=== PATIENT | female | born 1980 | race Caucasian/White ===

== ENCOUNTER 2016-03-14 11:10 | Inpatient (IN) | payer BC ==
[2016-03-10 12:25] VITALS: BMI 40.7
[~2016-03-14 11:10] MED LIST: DEXAMETHASONE SOD PHOSPHATE 10 MG/ML 1 ML VIAL IV ONE; HYDROmorphone 1 MG/ML 1 ML SYRINGE IVP PRN; LIDOCAINE 1% 20 ML VIAL (10MG/ML) FOR IV START INTRADERMA PRN; MIDAZOLAM 2 MG/2 ML VIAL IV PRN; ONDANSETRON 4 MG/2 ML VIAL IVP ONE; SCOPOLAMINE 1.5MG/72HR PATCH TRANSDERM ONE; ceFAZolin 2 GM in SODIUM CHLORIDE 0.9% 100 ML IVPB ONE
[2016-03-14 11:50] LABS: Appearance,Urine Cloudy (Clear); Bilirubin,Urine Negative (Negative); Glucose,Urine (UA) Negative (Negative); Ketones,Urine Trace (Negative); Leukocyte Esterase,Urine Trace (Negative); Mucus,Urine Few /hpf; Nitrite,Urine Negative (Negative); PH, Urine 5.5 (5.0-8.0); Particle Count 12991; Protein,Urine Trace (Negative); RBC,Urine 1 /hpf (0-5); Specific Gravity,Urine 1.019 (1.001-1.035); Squamous Epithelial Cell,Urine 9 /hpf (0-4); UA Billing (MACRO vs. MICRO) MICRO; WBC,Urine 2 /hpf (0-5)
[2016-03-14] MEDS: LACTATED RINGERS 1,000 ML IV SCH (11:50)
[2016-03-14] MEDS ORDERED: HYDROmorphone (PF) 1 MG/ML ONE (13:24)
[2016-03-14] MEDS ORDERED: PROPOFOL 10 MG/ML 20 ML VIAL IV ONE (13:24)
[2016-03-14] MEDS ORDERED: LIDOCAINE 2%-EPI 1:100,000 20 ML VIAL ONE (13:24)
[2016-03-14] MEDS ORDERED: ROPIVACAINE 5 MG/ML 30 ML VIAL ONE (13:24)
[2016-03-14] MEDS ORDERED: MIDAZOLAM 2 MG/2 ML VIAL ONE (13:24)
[2016-03-14] MEDS ORDERED: NEOSTIGMINE 1 MG/ML 10 ML VIAL ONE (13:24)
[2016-03-14] MEDS ORDERED: ROCURONIUM BROMIDE 10 MG/ML 10 ML VIAL IV ONE (13:24)
[2016-03-14] MEDS ORDERED: SUCCINYLCHOLINE CHLORIDE 100 MG/5 ML SYR IV ONE (13:24)
[2016-03-14] MEDS ORDERED: fentaNYL (PF) 50 MCG/ML 2 ML AMP ONE (13:24)
[2016-03-14] MEDS ORDERED: GLYCOPYRROLATE 0.2 MG/ML 2 ML VIAL ONE (13:24)
[2016-03-14] MEDS ORDERED: ceFAZolin 2,000 MG in SODIUM CHLORIDE 0.9% 2,000 ML IRRIGATION ONE (15:07)
[2016-03-14] MEDS: LACTATED RINGERS 1,000 ML IV ONE ×2 (15:08→15:34)
[2016-03-14] MEDS ORDERED: LACTATED RINGERS 1,000 ML IV ONE (15:08)
--- NOTE | 2016-03-14 15:18 | FL ---
Fluoroscopy INDICATION: Pain FINDINGS: Fluoroscopy time: 1 minute 13 seconds. Images obtained: 2. IMPRESSIONS: 1. Documentation of fluoroscopy.
--- NOTE | 2016-03-14 15:23 | XR ---
EXAMINATION TYPE: XR shoulder complete RT DATE OF EXAM: 03/14/2016 3:13 PM COMPARISON: NONE HISTORY: Open reduction internal fixation TECHNIQUE: Fluoroscopy is provided for procedure documentation FINDINGS: 1 minute 13 seconds fluoroscopy time was provided. 2 images were obtained IMPRESSION: Fluoroscopy for procedure documentation
[2016-03-14] MEDS ORDERED: HYDROmorphone 1 MG/ML 1 ML SYRINGE IVP PRN ×2 (15:34)
[2016-03-14] MEDS ORDERED: ONDANSETRON 4 MG/2 ML VIAL IVP PRN (15:34)
[2016-03-14] MEDS ORDERED: METOCLOPRAMIDE 5 MG/ML 2 ML VIAL IVP PRN (15:34)
[2016-03-14] MEDS ORDERED: TEMAZEPAM 15 MG CAP PO PRN (15:34)
[2016-03-14] MEDS ORDERED: SENNOSIDES-DOCUSATE SODIUM 1 EACH TAB PO PRN (15:34)
[2016-03-14] MEDS ORDERED: diphenhydrAMINE 25 MG CAP PO PRN (15:34)
[2016-03-14] MEDS ORDERED: hydrOXYzine PAMOATE 25 MG CAP PO PRN (15:34)
[2016-03-14] MEDS ORDERED: HYDROcodone/APAP 7.5-325MG 1 EACH TAB PO PRN (15:37)
[2016-03-14] MEDS ORDERED: LIDOCAINE 2% INJ 20 MG/ML SQ ONE (16:20)
[2016-03-14] MEDS ORDERED: BUPIVACAIN-EPI 0.25%-1:200,000 30 ML VIAL INTRAARTIC ONE (16:22)
--- NOTE | 2016-03-14 16:31 | P.ONQ ---
Anesthesiology Proc Note - PNB - Peripheral Nerve Block Performed Right Interscalene Single Procedure Start Time: 04:05 Procedure Stop Time: 04:20 Indication: Acute Post-Operative Pain Sedation Type: Sedate with meaningful contact maintained Preparation: Sterile Prep Position: Supine Catheter: None Needle Size: 50mm (2") Needle Gauge: 20 Technique: Ultrasound Injectate: Other (see comment) (lidocaine 1% 10 ml+ Bupivacaine 0,25% with epi 1 /200 k 10 ml) Blood Aspirated: No Pain Paresthesia on Injection Noted: No Resistance on Injection: Normal Events: Uneventful and Well Tolerated
[2016-03-14 18:12] LABS: Basophils % (A) 0 %; CHCM 32.2; Eosinophils # (A) 0.2 k/uL (0-0.7); Eosinophils % (A) 1 %; HCT 39.8 % (34.0-46.0); HDW 2.87; HGB 12.9 gm/dL (11.4-16.0); Hypochromasia Slight; Luc # (Auto) 0.04; Luc % (Auto) 0; Lymphocytes # (A) 0.7 k/uL (1.0-4.8); Lymphocytes % (A) 4 %; MCH 27.3 pg (25.0-35.0); MCHC 32.3 g/dL (31.0-37.0); MCV 84.3 fL (80.0-100.0); Mean Platelet Volume 8.2; Monocytes # (A) 0.2 k/uL (0-1.0); Monocytes % (A) 1 %; Neutrophils # (A) 16.9 k/uL (1.3-7.7); Neutrophils % (A) 94 %; RBC 4.72 m/uL (3.80-5.40); RDW 14.5 % (11.5-15.5); WBC (Perox) 20.15
[2016-03-14] MEDS ORDERED: ALBUTEROL INHALER 60 PUFF/8 GM INHALER INHALATION PRN (19:05)
[2016-03-14] MEDS: ALBUTEROL NEBULIZED 2.5 MG/3 ML INHALATION PRN (20:44)
[2016-03-14] MEDS: ALPRAZolam 0.5 MG TAB PO SCH (21:05)
[2016-03-14] MEDS: DOXYCYCLINE 50 MG CAP PO SCH (21:05)
[2016-03-14] MEDS: levETIRAcetam 500 MG TAB PO SCH (21:06)
[2016-03-14] MEDS: ceFAZolin 2 GM in SODIUM CHLORIDE 0.9% 100 ML IVPB SCH (21:14)
[2016-03-15] MEDS: ceFAZolin 2 GM in SODIUM CHLORIDE 0.9% 100 ML IVPB SCH (04:05)
[2016-03-15] MEDS: HYDROmorphone 1 MG/ML 1 ML SYRINGE IVP PRN ×4 (04:15→20:17)
[2016-03-15] MEDS: HYDROcodone/APAP 7.5-325MG 1 EACH TAB PO PRN ×4 (04:55→21:11)
[2016-03-15] MEDS: ALPRAZolam 0.5 MG TAB PO SCH ×3 (04:56→22:12)
[2016-03-15] MEDS: ALBUTEROL NEBULIZED 2.5 MG/3 ML INHALATION PRN ×2 (05:12→09:18)
--- NOTE | 2016-03-15 09:08 | P.PN ---
Subjective Principal diagnosis: Right proximal humerus fracture Patient is postop day #1 from ORIF of right proximal humerus fracture performed by Dr. Hansen. She has postoperative pain at the surgical site as expected. She has no new right upper extremity complaints. She denies numbness or tingling. She has some chest congestion which she has chronic asthma and utilizes an albuterol inhaler and nebulizer at home. She's had to breathing treatments postoperatively. She denies chest pain or shortness of breath currently. She also denies fever or chills. She has no other complaints or constitutional symptoms. Objective - Vital Signs Vital signs: Vital Signs Temp 98.8 F 03/15/16 07:46 Pulse 66 03/15/16 07:46 Resp 14 03/15/16 07:46 BP 140/90 03/15/16 07:46 Pulse Ox 98 03/15/16 07:46 Intake & Output 03/14/16 03/15/16 03/15/16 18:59 06:59 18:59 Intake Total 3300 300 Output Total 100 Balance 3200 300 Weight 117.934 kg Intake: IV 3300 Oral 300 Output: Estimated Blood Loss 100 Other: Voiding Method Bedpan Bedpan Toilet # Voids 3 - Exam Inspection of the right upper extremity reveals wound intact. There is no active bleeding, dehiscence or drainage. Range of motion of the shoulders not tested. Neurovascular status is intact. She has splint in place for her right scaphoid fracture. She is able to flex and extend all digits. Sensation to light touch is intact throughout the right upper extremity. There is less than 2 second cap refill present. - Constitutional General appearance: Present: no acute distress - Psychiatric Psychiatric: Present: A&O x's 3, appropriate affect, intact judgment & insight - Labs CBC & Chem 7: 03/14/16 17:31 Labs: Abnormal Lab Results - Last 24 Hours (Table) 03/14/16 03/14/16 Range/Units 11:40 17:31 WBC 18.0 H (3.8-10.6) k/uL Neutrophils # 16.9 H (1.3-7.7) k/uL Lymphocytes # 0.7 L (1.0-4.8) k/uL Urine Appearance Cloudy H (Clear) Urine Protein Trace H (Negative) Urine Ketones Trace H (Negative) Ur Leukocyte Esterase Trace H (Negative) Ur Squamous Epith Cells 9 H (0-4) /hpf Urine Mucus Few H (None) /hpf Assessment and Plan (1) Fx humeral neck Narrative/Plan: She'll continue with routine postop orthopedic protocol including pain management, wound care and DVT prophylaxis. She is to remain in sling and nonweightbearing with the right upper extremity. Splint to the right forearm and wrist is to be remain intact. We'll consult her primary care physician for postoperative medical management including or asthma. Expect that she'll be allowed to discharge to home today or tomorrow pending her primary care physician's recommendations. Status: Acute Time with Patient: Less than 30
[2016-03-15] MEDS: DULoxetine HCL 30 MG CAPSULE.DR PO SCH (09:42)
[2016-03-15] MEDS: levETIRAcetam 500 MG TAB PO SCH ×2 (09:42→22:10)
[2016-03-15] MEDS: LACTATED RINGERS 1,000 ML IV SCH ×5 (09:43→21:03)
[2016-03-15] MEDS ORDERED: guaiFENesin-DM 100-10MG/5ML 10 ML CUP PO PRN (10:21)
[2016-03-15] MEDS: DOXYCYCLINE 50 MG CAP PO SCH (10:32)
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
--- NOTE | 2016-03-15 13:11 | XR ---
EXAMINATION TYPE: XR chest 2V DATE OF EXAM: 03/15/2016 1:05 PM COMPARISON: Prior chest x-ray 04 Jul 2011 HISTORY: Cough TECHNIQUE: Frontal and lateral views of the chest are obtained. FINDINGS: Airspace disease suspected in the right upper lobe. Patchy basilar density also noted. No evident pneumothorax. Cardiomediastinal silhouette, pulmonary vascularity and morgan not significantly changed. Postop changes noted to the right shoulder. IMPRESSION: Findings could be due to right upper lobe pneumonia, there is likely basilar atelectasis . Follow-up suggested.
[2016-03-15] MEDS: methylPREDNISolone SOD SUCCI 40 MG/ML 1 ML VIAL IV SCH ×2 (14:27→18:01)
[2016-03-15] MEDS: AZITHROMYCIN 500 MG in SODIUM CHLORIDE 0.9% 250 ML IVPB SCH (15:57)
[2016-03-15] MEDS: IPRATROPIUM-ALBUTEROL 3 ML NEB INHALATION SCH ×2 (17:06→20:10)
[2016-03-15 17:28] LABS: Glucose,Whole Blood 144 mg/dL (75-99)
[2016-03-15] MEDS: HEPARIN SODIUM,PORCINE 5,000 UNIT/ML 1 ML VIAL SQ SCH (22:13)
--- NOTE | 2016-03-15 22:57 | OP ---
DATE OF SERVICE: 03/14/2016 SURGEON: JERRY CROUCH MD SCALLOP SHUCKER: MY SHIRLEY PA-C PREOPERATIVE DIAGNOSIS: Right displaced proximal humerus fracture. POSTOPERATIVE DIAGNOSIS: Right displaced proximal humerus fracture. OPERATION: Open reduction internal fixation, right proximal humerus fracture. ANESTHESIA: General endotracheal. ESTIMATED BLOOD LOSS: 200 mL DRAINS: None. SPECIMENS REMOVED: COMPLICATIONS: None apparent. DISPOSITION: Post-Anesthesia Care Unit OPERATIVE FINDINGS: INDICATIONS: Marce is a pleasant 35-year-old female who approximately 2 weeks ago fell down the stairs in her home one. She initially presented to [facility]'s emergency department. Workup, including x-rays, revealed a displaced proximal humerus fracture, a non-displaced right radial neck fracture, and a right displaced scaphoid fracture. I saw her in the office a few days after her injury. She was in a sling. I discussed her injuries with her. Given the displacement, her proximal humerus fracture was in a significant amount of varus. Given her young age and activity level, recommendation was made for open reduction internal fixation of her right proximal humerus fracture. Further reasons for the open reduction internal fixation are that she will likely require operative fixation of her scaphoid fracture, and fixation of her proximal humerus fracture will allow that to be expedited. The risks of the procedure were discussed with her and her family member in detail. These risks include but are not limited to risk of infection, nerve damage, bleeding, pain, and a small risk of deep vein thrombosis which could lead to fatal pulmonary embolism. Further risks include delayed healing or nonunion at the fracture site. She is a smoker. I did significantly skilled nursing facility counselor her on smoking cessation, as it can lead to delayed union or nonunion of the fracture. Risk of avascular necrosis of the humeral head was also discussed with her. All of her questions with regard to the risks were answered to her satisfaction. Appropriate informed consent was obtained. DESCRIPTION OF THE PROCEDURE: Patient was identified in the preoperative holding area. Surgical site was marked by both the patient and myself. She was given 2 grams of Ancef IV for prophylactic purposes. She was then transferred to the operative suite, where she was placed supine on the operating room table. A general anesthetic was then administered and dosed per the anesthesia department without apparent complication. The patient was then intubated endotracheally and received general anesthesia throughout the operative procedure. She was then placed into the beach chair position, well padded in preparation for surgery. Great care was taken to ensure that her cervical spine was in neutral alignment, well-padded and maintained that way throughout the operative procedure. Her legs were appropriately padded as well. Patient's right upper extremity was then prepped and draped in the usual sterile fashion. Standard surgical pause was then undertaken to ensure that we were operating on the correct site and that appropriate preoperative antibiotics had been given. All staff in the room were in agreement, and we proceeded. The outlines of the acromion, acromioclavicular joint and coracoid were marked with a surgical pen. A planned 10 cm incision extending from the level of the clavicle distally was marked with a surgical pen. The incision was then made with a 10 blade scalpel. Dissection was carried down sharply to the deltoid fascia. Electrocautery was then utilized for hemostasis. Very minimal medial and lateral subcutaneous flaps were then raised. I then identified the deltopectoral interval at the level of the clavicle. I then freed the cephalic vein from its lateral fascial attachments to the deltoid. The cephalic vein was then left in its bed medially and protected throughout the rest of the procedure. The subdeltoid space had significant hemorrhagic adhesions. These were then lysed, mostly using my finger as well as a Darrach instrument. The fracture was then readily identified. The rotator cuff was inspected and found to be intact. I then placed #1 Vicryl traction sutures in both the subscapularis and in the posterior rotator cuff. This gave me good control of the humeral head. I then placed a small 4 mm pin in the fracture site and then was able to lever the humeral head out of varus and into an appropriate amount of valgus. This maneuver was combined with longitudinal traction. Fluoroscopy was then brought in to confirm the reduction. The reduction was near-anatomic. I then proceeded with fixation. The reduction was held with K wires. Synthes 3.5 mm pre-contoured proximal humeral locking plate was then opened. This was then placed and provisionally pinned with K wires. Fluoroscopy was then brought in to check for the height of the plate to ensure that the plate was appropriately placed, and it was. Then I placed a 3.5 mm bicortical non-locking screw through the oblong hole of the plate. This brought the plate down very nicely and flush with the lateral cortex of the proximal humerus. I then proceeded incrementally to place multiple 3.5 mm locking screws through the proximal locking holes of the plate. All of these were placed under fluoroscopic guidance to ensure that they were well placed within the humeral head. This provided excellent fixation of the fracture. I then finally placed one 3.5 mm bicortical non-locking screw through the most distal hole of the plate. Final fluoroscopic images were taken. All of the proximal locking screws were placed through the plate and locked appropriately into the plate. They were all of appropriate length and did not violate the articular surface. The 2 distal screws were of appropriate length and well placed in the center of the bone. At this point in time, no further work was deemed necessary. I did tie the traction sutures to the proximal aspect of the plate as a parachute-type technique to further maintain the reduction. The wound was then thoroughly irrigated with sterile saline solution with antibiotic added. The deltopectoral interval was closed with 0 Vicryl interrupted suture. The subcutaneous tissue was closed with 2-0 Vicryl interrupted suture and the skin was closed with a running 3-0 Quill suture. Dermabond was applied to the incision. Sterile compressive dressings were then applied. The patient's right upper extremity was placed in a standard sling. All sponge and needle counts were deemed correct prior to closure. The patient tolerated the procedure without apparent complication. She was transferred to the recovery room in stable condition.
[2016-03-16] MEDS: IPRATROPIUM-ALBUTEROL 3 ML NEB INHALATION SCH ×6 (00:16→19:16)
[2016-03-16] MEDS: methylPREDNISolone SOD SUCCI 40 MG/ML 1 ML VIAL IV SCH ×4 (00:44→23:32)
[2016-03-16] MEDS: LACTATED RINGERS 1,000 ML IV SCH ×2 (04:09→08:25)
[2016-03-16] MEDS: HYDROcodone/APAP 7.5-325MG 1 EACH TAB PO PRN (05:51)
[2016-03-16 07:47] LABS: Glucose,Whole Blood 135 mg/dL (75-99)
[2016-03-16 08:02] LABS: ALT 24 U/L (9-52); AST 17 U/L (14-36); Alkaline Phosphatase 87 U/L (38-126); Anion Gap 11 mmol/L; Blood Urea Nitrogen 6 mg/dL (7-17); Calcium 9.4 mg/dL (8.4-10.2); Carbon Dioxide 25 mmol/L (22-30); Chloride 105 mmol/L (98-107); Glucose 140 mg/dL (74-99); Non-African American GFR(MDRD) >60 (>60 ml/min/1.73 sqM); Potassium 4.7 mmol/L (3.5-5.1); Sodium 141 mmol/L (137-145); Total Bilirubin 0.6 mg/dL (0.2-1.3); Total Protein 6.4 g/dL (6.3-8.2)
[2016-03-16 08:09] LABS: Basophils % (A) 0 %; CH 26.9; CHCM 31.8; Eosinophils # (A) 0.1 k/uL (0-0.7); Eosinophils % (A) 1 %; HDW 2.83; HGB 11.4 gm/dL (11.4-16.0); Hypochromasia Slight; Luc # (Auto) 0.07; Luc % (Auto) 1; Lymphocytes # (A) 0.9 k/uL (1.0-4.8); Lymphocytes % (A) 9 %; MCH 26.9 pg (25.0-35.0); MCHC 31.7 g/dL (31.0-37.0); MCV 84.9 fL (80.0-100.0); Mean Platelet Volume 8.3; Monocytes # (A) 0.3 k/uL (0-1.0); Monocytes % (A) 3 %; Neutrophils # (A) 8.9 k/uL (1.3-7.7); Neutrophils % (A) 87 %; RBC 4.24 m/uL (3.80-5.40); RDW 14.5 % (11.5-15.5); WBC 10.2 k/uL (3.8-10.6); WBC (Perox) 10.44
[2016-03-16] MEDS: ALPRAZolam 0.5 MG TAB PO SCH ×2 (08:35→20:06)
[2016-03-16] MEDS: levETIRAcetam 500 MG TAB PO SCH ×2 (08:36→20:06)
[2016-03-16] MEDS: DULoxetine HCL 30 MG CAPSULE.DR PO SCH (08:36)
[2016-03-16] MEDS: HEPARIN SODIUM,PORCINE 5,000 UNIT/ML 1 ML VIAL SQ SCH ×2 (08:36→20:06)
--- NOTE | 2016-03-16 09:04 | P.DS ---
Providers Date of admission: 03/15/16 18:06 Expected date of discharge: 03/16/16 Attending physician: Jamey Hansen Consults: 03/15/16 09:03 Consult Physician Routine Consulting Provider: Geronimo Mcnulty Consult Reason/Comments: post op medical management Do you want consulting provider notified?: Yes Primary care physician: Geronimo Mcnulty - Discharge Diagnosis(es) (1) Fx humeral neck Patient was admitted on 03/14/2016 to the OR to undergo ORIF of right proximal humerus fracture. She underwent the procedure and tolerated well without complication. Her postoperative hospital course has remained relatively without complication. She has chronic asthma and had possible exacerbation of asthma with mild right upper lobe infiltrate and possible pneumonia. She's been treated with IV antibiotics, breathing treatments and systemic cortico- steroids her signs and symptoms have resolved for the most part. On day of discharge she is afebrile, labs within normal range, wound benign, abdomen soft nontender, neurovascular status intact in the upper extremity, less than 2 second cap refill distally, calves soft and nontender, denying new complaints, tolerating by mouth meds and diet, voiding without difficulty, positive flatus, denying numbness or tingling. Review of systems is negative for fever, chills, chest pain, shortness of breath, productive cough, dizziness, headaches, slurred speech or other. Current Visit: No Status: Acute Priority: Medium Patient Condition at Discharge: Good Plan - Discharge Summary New Discharge Prescriptions: Doxycycline Hyclate [Vibramycin] 100 mg PO BID #10 cap HYDROcodone/APAP 10-325MG [[place] 10-325] 1 tab PO Q4HR PRN #60 tab PRN Reason: Pain Discharge Medication List Ibuprofen [Motrin] 800 mg PO Q8HR PRN 06/06/14 [History] levETIRAcetam [Keppra] 500 mg PO Q12HR #90 tab 12/03/15 [Rx] ALPRAZolam [Xanax] 0.5 mg PO BID 02/29/16 [History] Albuterol Inhaler [Ventolin Hfa Inhaler] 1 - 2 puff INHALATION RT-Q6H PRN [History] Albuterol Nebulized [Ventolin Nebulized] 2.5 mg INHALATION RT-Q6H PRN 02/29/16 [ History] HYDROcodone/APAP 7.5-325MG [[place] 7.5-325] 1 tab PO Q4H PRN 02/29/16 [History] DULoxetine HCL [Cymbalta] 30 mg PO DAILY 03/15/16 [History] Doxycycline Hyclate [Vibramycin] 100 mg PO BID #10 cap 03/16/16 [Rx] HYDROcodone/APAP 10-325MG [[place] 10-325] 1 tab PO Q4HR PRN #60 tab 03/16/16 [Rx] Follow up Appointment(s)/Referral(s): Jamey Hansen MD [STAFF PHYSICIAN] - 10 Days Activity/Diet/Wound Care/Special Instructions: Nonweightbearing right upper extremity Maintain splint and sling Keep wound clean and dry Follow-up with Dr. Hansen in office in 10-14 days Take meds as directed Discharge Disposition: HOME SELF-CARE
[2016-03-16] MEDS: AZITHROMYCIN 500 MG in SODIUM CHLORIDE 0.9% 250 ML IVPB SCH (10:11)
[2016-03-16] MEDS: HYDROcodone/APAP 10-325MG 1 EACH TAB PO PRN ×3 (11:41→23:36)
[2016-03-16 11:56] LABS: Glucose,Whole Blood 126 mg/dL (75-99)
--- NOTE | 2016-03-16 12:42 | P.PN ---
Subjective Patient is not feeling any better today. She continues to have diffuse wheezing and rhonchi all over her chest. Chest x-ray showed suspected right upper lobe pneumonia. Objective - Vital Signs Vital signs: Vital Signs Temp 97.6 F 03/16/16 07:44 Pulse 86 03/16/16 11:48 Resp 16 03/16/16 08:00 BP 154/96 03/16/16 07:44 Pulse Ox 95 03/16/16 07:44 Intake & Output 03/15/16 03/16/16 03/16/16 18:59 06:59 18:59 Intake Total 744 800 180 Balance 744 800 180 Intake: Intake, IV Titration 500 Amount Lactated Ringers 1,000 ml 500 @ 100 mls/hr IV .Q10H HECTOR Rx#:[id number] Oral 744 300 180 Other: Voiding Method Toilet Toilet Toilet # Voids 1 - Exam General: The patient is awake and alert, in no distress Eye: there is normal conjunctiva bilaterally. Neck: The neck is supple, there is no JVD. Cardiovascular: Normal S1-S2, no S3-S4, no murmurs. Respiratory: Lungs with diffuse rhonchi and wheezing all over the chest Gastrointestinal: Abdomen is soft, nontender Musculoskeletal: There is no pedal edema. Neurological:. Speech is normal. Skin: Skin is warm and dry - Labs CBC & Chem 7: 03/16/16 07:09 03/16/16 07:09 Labs: Abnormal Lab Results - Last 24 Hours (Table) 03/15/16 03/16/16 03/16/16 Range/Units 17:15 07:09 07:09 Neutrophils # 8.9 H (1.3-7.7) k/uL Lymphocytes # 0.9 L (1.0-4.8) k/uL BUN 6 L (7-17) mg/dL Creatinine 0.43 L (0.52-1.04) mg/dL Glucose 140 H (74-99) mg/dL POC Glucose (mg/dL) 144 H (75-99) mg/dL 03/16/16 03/16/16 Range/Units 07:46 11:52 Neutrophils # (1.3-7.7) k/uL Lymphocytes # (1.0-4.8) k/uL BUN (7-17) mg/dL Creatinine (0.52-1.04) mg/dL Glucose (74-99) mg/dL POC Glucose (mg/dL) 135 H 126 H (75-99) mg/dL Assessment and Plan Plan: 1. Postoperative day #2 status post ORIF of the right humerus: Orthopedic following closely. Continue postoperative care. Pain control. 2. Reactive airway disease with acute exacerbation of underlying asthma 3. Acute bacterial bronchitis with suspected right upper lobe pneumonia on chest x-ray 4. Underlying seizure disorder on Keppra twice daily 5. Generalized anxiety disorder 6. Major depressive disorder on Cymbalta 7. Tobacco abuse: Counseled to quit. Discussed different strategies. Time spent 5 minutes. 8. DVT prophylaxis with subcu heparin Patient did not improve clinically since yesterday. She would benefit from another 24 hours of IV steroids and and IV antibiotic. Continue bronchodilators around the clock. Continue incentive spirometer. Encouraged ambulation. Possible discharge home tomorrow.
--- NOTE | 2016-03-16 15:05 | PN ---
DATE OF SERVICE: 03/16/2016 Marce is postoperative day #2, status post open reduction and internal fixation of a displaced right proximal humerus fracture. She is doing quite well. Her pain is controlled. She is being treated for pneumonia, which was picked up while she was here in the hospital. She was appropriately being treated on IV antibiotics as followed by the internal medicine team. She is feeling much better today. She has no other complaints. On examination, incision is healing well, it is very dry. There is no drainage. She has intact flexion-extension of all of her fingers. She has intact radial, median, and ulnar nerve sensation. She has 2+ radial pulse and brisk capillary refill in all digits. IMPRESSION: Postoperative day #2, status post open reduction, internal fixation of right proximal humerus fracture. RECOMMENDATIONS: Marce is doing much better. We will follow the recommendations of the medical team regarding treatment for her pneumonia. With regards for right upper extremity, she will keep the incision clean and dry. She will maintain the right upper extremity into a sling; however, she can loosen the sling at night or while she is lying in bed. We will not start any physical therapy at this time. She will follow up with me in the office next week. All of her questions were answered to her satisfaction.
[2016-03-16 16:46] LABS: Glucose,Whole Blood 124 mg/dL (75-99)
[2016-03-16 20:40] LABS: Glucose,Whole Blood 183 mg/dL (75-99)
[2016-03-16 22:15] VITALS: RESP 16
[2016-03-17] MEDS: IPRATROPIUM-ALBUTEROL 3 ML NEB INHALATION SCH ×4 (00:11→12:37)
[2016-03-17 07:06] LABS: Basophils % (A) 0 %; CH 26.6; CHCM 30.8; Eosinophils # (A) 0.2 k/uL (0-0.7); Eosinophils % (A) 2 %; HCT 38.8 % (34.0-46.0); HGB 11.9 gm/dL (11.4-16.0); Hypochromasia Moderate; Luc # (Auto) 0.11; Luc % (Auto) 1; Lymphocytes # (A) 1.3 k/uL (1.0-4.8); Lymphocytes % (A) 10 %; MCH 26.6 pg (25.0-35.0); MCHC 30.7 g/dL (31.0-37.0); MCV 86.8 fL (80.0-100.0); Mean Platelet Volume 8.4; Monocytes # (A) 0.3 k/uL (0-1.0); Monocytes % (A) 3 %; Neutrophils # (A) 10.7 k/uL (1.3-7.7); Neutrophils % (A) 84 %; RBC 4.47 m/uL (3.80-5.40); RDW 14.4 % (11.5-15.5); WBC 12.6 k/uL (3.8-10.6); WBC (Perox) 13.53
[2016-03-17] MEDS: HYDROcodone/APAP 10-325MG 1 EACH TAB PO PRN ×2 (07:09→12:34)
[2016-03-17 07:20] LABS: Glucose,Whole Blood 135 mg/dL (75-99)
[2016-03-17 07:22] LABS: ALT 34 U/L (9-52); AST 20 U/L (14-36); Alkaline Phosphatase 85 U/L (38-126); Anion Gap 14 mmol/L; Blood Urea Nitrogen 10 mg/dL (7-17); Calcium 9.7 mg/dL (8.4-10.2); Carbon Dioxide 23 mmol/L (22-30); Chloride 105 mmol/L (98-107); Glucose 128 mg/dL (74-99); Non-African American GFR(MDRD) >60 (>60 ml/min/1.73 sqM); Potassium 4.6 mmol/L (3.5-5.1); Sodium 142 mmol/L (137-145); Total Bilirubin 0.6 mg/dL (0.2-1.3); Total Protein 6.8 g/dL (6.3-8.2)
[2016-03-17 07:44] VITALS: BP 161/79; TEMP 98
--- NOTE | 2016-03-17 07:59 | XR ---
EXAMINATION TYPE: XR chest 1V DATE OF EXAM: 03/17/2016 6:41 AM HISTORY: Cough. REFERENCE: Previous study dated 03/15/2016. FINDINGS: There has been internal fixation of the right shoulder. There is atelectatic change present at both lung bases. The right upper lobe infiltrate appears to chan ve resolved. The heart is mildly enlarged. There are small, bilateral effusions. IMPRESSION: 1. BIBASILAR ATELECTASIS. 2. RESOLUTION OF THE PATIENT'S RIGHT UPPER LOBE INFILTRATE. 3. MILD CARDIOMEGALY. 4. SMALL, BILATERAL EFFUSIONS.
[2016-03-17] MEDS: methylPREDNISolone SOD SUCCI 40 MG/ML 1 ML VIAL IV SCH (08:09)
[2016-03-17] MEDS: HEPARIN SODIUM,PORCINE 5,000 UNIT/ML 1 ML VIAL SQ SCH (08:10)
[2016-03-17] MEDS: levETIRAcetam 500 MG TAB PO SCH (08:10)
[2016-03-17] MEDS: AZITHROMYCIN 500 MG in SODIUM CHLORIDE 0.9% 250 ML IVPB SCH (08:11)
[2016-03-17] MEDS: DULoxetine HCL 30 MG CAPSULE.DR PO SCH (08:11)
[2016-03-17] MEDS: ALPRAZolam 0.5 MG TAB PO SCH (08:23)
--- NOTE | 2016-03-17 08:51 | P.PN ---
Subjective Principal diagnosis: Right proximal humerus fracture Patient is postop day #3 from ORIF of right proximal humerus fracture performed by Dr. Hansen. She has postoperative pain at the surgical site as expected. She has no new right upper extremity complaints. She states her cough and chest congestion has improved. She denies chest pain or shortness of breath currently. She also denies fever or chills. She has no other complaints or constitutional symptoms. Objective - Vital Signs Vital signs: Vital Signs Temp 98.0 F 03/17/16 07:42 Pulse 79 03/17/16 07:42 Resp 16 03/17/16 07:42 BP 161/79 03/17/16 07:42 Pulse Ox 93 L 03/17/16 07:42 Intake & Output 03/16/16 03/17/16 03/17/16 18:59 06:59 18:59 Intake Total 1000 300 Balance 1000 300 Intake: IV 700 300 Lactated Ringers 1,000 ml 700 300 @ 100 mls/hr IV .Q10H HECTOR Rx#:[id number] Oral 300 Other: Voiding Method Toilet Toilet # Voids 1 - Exam Inspection of the right upper extremity reveals wound intact. There is no active bleeding, dehiscence or drainage. Range of motion of the shoulders not tested. Neurovascular status is intact. She has splint in place for her right scaphoid fracture. She is able to flex and extend all digits. Sensation to light touch is intact throughout the right upper extremity. There is less than 2 second cap refill present. - Constitutional General appearance: Present: no acute distress - Psychiatric Psychiatric: Present: A&O x's 3, appropriate affect, intact judgment & insight - Labs CBC & Chem 7: 03/17/16 06:40 03/17/16 06:40 Labs: Abnormal Lab Results - Last 24 Hours (Table) 03/16/16 03/16/16 03/16/16 Range/Units 11:52 16:40 20:36 WBC (3.8-10.6) k/uL MCHC (31.0-37.0) g/dL Neutrophils # (1.3-7.7) k/uL Creatinine (0.52-1.04) mg/dL Glucose (74-99) mg/dL POC Glucose (mg/dL) 126 H 124 H 183 H (75-99) mg/dL 03/17/16 03/17/16 03/17/16 Range/Units 06:40 06:40 07:17 WBC 12.6 H (3.8-10.6) k/uL MCHC 30.7 L (31.0-37.0) g/dL Neutrophils # 10.7 H (1.3-7.7) k/uL Creatinine 0.46 L (0.52-1.04) mg/dL Glucose 128 H (74-99) mg/dL POC Glucose (mg/dL) 135 H (75-99) mg/dL Assessment and Plan (1) Fx humeral neck Narrative/Plan: She'll continue with routine postop orthopedic protocol including pain management, wound care and DVT prophylaxis. She is to remain in sling and nonweightbearing with the right upper extremity. Splint to the right forearm and wrist is to be remain intact. Her Chest Xray look improved. She feels improved with her chest/cough. Expect that she'll be allowed to discharge to home today or tomorrow pending her primary care physician's recommendations.She has rx for doxycycline regarding her shoulder syrgery as well as pain med rx. Status: Acute Time with Patient: Less than 30
[2016-03-17 12:19] LABS: Glucose,Whole Blood 129 mg/dL (75-99)
[2016-03-17 12:49] VITALS: PULSE 80
--- NOTE | 2016-03-17 13:44 | P.PN ---
Subjective Patient is doing better today. She continues to have wheezing that is better compared to yesterday. She is feeling well enough to go home. Objective - Vital Signs Vital signs: Vital Signs Temp 98.0 F 03/17/16 07:42 Pulse 80 03/17/16 12:47 Resp 16 03/17/16 07:42 BP 161/79 03/17/16 07:42 Pulse Ox 95 03/17/16 08:50 Intake & Output 03/16/16 03/17/16 03/17/16 18:59 06:59 18:59 Intake Total 1000 300 300 Balance 1000 300 300 Intake: IV 700 300 Lactated Ringers 1,000 ml 700 300 @ 100 mls/hr IV .Q10H HECTOR Rx#:[id number] Intake, IV Titration 300 Amount Azithromycin 500 mg In 250 Sodium Chloride 0.9% 250 ml @ 125 mls/hr IVPB DAILY HECTOR Rx#:[id number] cefTRIAXone 1,000 mg In 50 Sodium Chloride 0.9% 50 ml @ 100 mls/hr IVPB Q24HR HECTOR Rx#:[id number] Oral 300 Other: Voiding Method Toilet Toilet Toilet # Voids 1 - Exam General: The patient is awake and alert, in no distress Eye: there is normal conjunctiva bilaterally. Neck: The neck is supple, there is no JVD. Cardiovascular: Normal S1-S2, no S3-S4, no murmurs. Respiratory: Lungs with diffuse rhonchi and wheezing all over the chest Gastrointestinal: Abdomen is soft, nontender Musculoskeletal: There is no pedal edema. Neurological:. Speech is normal. Skin: Skin is warm and dry - Labs CBC & Chem 7: 03/17/16 06:40 03/17/16 06:40 Labs: Abnormal Lab Results - Last 24 Hours (Table) 03/16/16 03/16/16 03/17/16 Range/Units 16:40 20:36 06:40 WBC 12.6 H (3.8-10.6) k/uL MCHC 30.7 L (31.0-37.0) g/dL Neutrophils # 10.7 H (1.3-7.7) k/uL Creatinine (0.52-1.04) mg/dL Glucose (74-99) mg/dL POC Glucose (mg/dL) 124 H 183 H (75-99) mg/dL 03/17/16 03/17/16 03/17/16 Range/Units 06:40 07:17 12:16 WBC (3.8-10.6) k/uL MCHC (31.0-37.0) g/dL Neutrophils # (1.3-7.7) k/uL Creatinine 0.46 L (0.52-1.04) mg/dL Glucose 128 H (74-99) mg/dL POC Glucose (mg/dL) 135 H 129 H (75-99) mg/dL Assessment and Plan Plan: 1. Postoperative day #3 status post ORIF of the right humerus: Orthopedic following closely. Continue postoperative care. Pain control. 2. Reactive airway disease with acute exacerbation of underlying asthma 3. Acute bacterial bronchitis with suspected right upper lobe pneumonia on chest x-ray 4. Underlying seizure disorder on Keppra twice daily 5. Generalized anxiety disorder 6. Major depressive disorder on Cymbalta 7. Tobacco abuse: Counseled to quit. Discussed different strategies. Time spent 5 minutes. 8. DVT prophylaxis with subcu heparin Patient improved clinically compared to yesterday. She is medically cleared for discharge. She will finish 5 days course of Levaquin for underlying pneumonia along with the doxycycline prescribed for her recent shoulder surgery. She will also finish 5 days course of prednisone. She will follow-up with me in the office on Sunday as directed
== END 2016-03-17 15:05 | disposition home or self-care (01) | DRG 492 ==
LOC: OR 11:10 → 3OBS 15:35 → OR 03-15 18:05 → 3OBS 03-15 18:06 → 3SUR 03-15 21:04
PROVIDERS: ADMIT Orthopaedic Surgery Sports Medicine; ATTEND Orthopaedic Surgery Sports Medicine
PROC: 0PSC04Z Reposition Right Humeral Head with Internal Fixation Device, Open Approach (ICD-10-PCS; principal; 2016-03-15)
DX: S42.201A Unspecified fracture of upper end of right humerus, initial encounter for closed fracture (principal); J18.9 Pneumonia, unspecified organism; J45.21 Mild intermittent asthma with (acute) exacerbation; I10 Essential (primary) hypertension; F17.200 Nicotine dependence, unspecified, uncomplicated; G40.909 Epilepsy, unspecified, not intractable, without status epilepticus; K21.9 Gastro-esophageal reflux disease without esophagitis; K58.9 Irritable bowel syndrome, unspecified; M79.7 Fibromyalgia; F32.9 Major depressive disorder, single episode, unspecified; F41.1 Generalized anxiety disorder; J20.9 Acute bronchitis, unspecified; Z79.899 Other long term (current) drug therapy; W10.9XXA Fall (on) (from) unspecified stairs and steps, initial encounter; Y92.008 Other place in unspecified non-institutional (private) residence as the place of occurrence of the external cause
CPT/HCPCS: 64415; 71010; 71020; 80053; 81001; 81025; 85025; 94640; 94760

== ENCOUNTER 2016-05-31 14:07 | Emergency (ER) | payer BC ==
[2016-05-31 14:13] VITALS: BP 182/99; PULSE 50; RESP 20; TEMP 97.7
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
--- NOTE | 2016-05-31 15:42 | XR ---
EXAMINATION TYPE: XR wrist complete RT DATE OF EXAM: 05/31/2016 3:34 PM COMPARISON: 02/25/2016 HISTORY: Pain recent injury history of wrist fracture TECHNIQUE: 4 view right wrist FINDINGS: Deformity of the scaphoid is noted. On the oblique view there is a lucency within the mid s caphoid which could indicate refracture. Callus formation is not well identified around the scaphoid. No additional areas suspicious for acute fracture is identified. Diffuse soft tissue swelling may be present. IMPRESSION: 1. Findings suggestive for refracture of the mid scaphoid. This could be related to the previous fra cture with re-injury. 2. Soft tissue swelling diffusely at the wrist
--- NOTE | 2016-05-31 15:47 | XR ---
EXAMINATION TYPE: XR forearm RT DATE OF EXAM: 05/31/2016 3:34 PM COMPARISON: NONE HISTORY: Reinjury history of fracture TECHNIQUE: 2 views forearm FINDINGS: There is a fracture at the wrist. This may include a portion of the metacarpal which is not identified on the wrist images. Diffuse soft tissue swelling is at the distal radius. The forearm ap pears otherwise intact. Some subtle lucency may be within the distal radius. Nondisplaced fracture is not excluded. Note this is not identified on the rest images. IMPRESSION: 1. Findings suggestive of wrist fractures. This area appears more extensive than on the wrist images . However, wrist images do not support additional fractures beyond the scaphoid. 2. Proximal remaining forearm is unremarkable.
--- NOTE | 2016-05-31 15:49 | XR ---
EXAMINATION TYPE: XR humerus RT DATE OF EXAM: 05/31/2016 3:34 PM COMPARISON: 02/25/2016 HISTORY: Previous injury TECHNIQUE: 2 view right humerus FINDINGS: There is prior repair of a proximal humeral fracture. No acute fractures are evident. IMPRESSION: 1. No acute fracture. Humeral neck fracture is evident with open reduction internal fixation repair.
[2016-05-31] MEDS ORDERED: HYDROmorphone 1 MG/ML 1 ML SYRINGE IM STA (15:58)
== END 2016-05-31 16:10 | disposition home or self-care (01) ==
LOC: EC 14:07
DX: S62.021A Displaced fracture of middle third of navicular [scaphoid] bone of right wrist, initial encounter for closed fracture (principal); M25.511 Pain in right shoulder; I10 Essential (primary) hypertension; G40.909 Epilepsy, unspecified, not intractable, without status epilepticus; M79.7 Fibromyalgia; F17.200 Nicotine dependence, unspecified, uncomplicated; F41.9 Anxiety disorder, unspecified; F32.9 Major depressive disorder, single episode, unspecified; W23.0XXA Caught, crushed, jammed, or pinched between moving objects, initial encounter; Z79.52 Long term (current) use of systemic steroids; Z79.899 Other long term (current) drug therapy
CPT/HCPCS: 99283; 96372; 73060; 73090; 73110; J1170

== ENCOUNTER 2016-06-29 20:55 | Emergency (ER) | payer BC ==
[2016-06-29 21:05] VITALS: RESP 16; TEMP 97.8
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
[2016-06-30 00:27] LABS: Basophils # (A) 0.1 k/uL (0-0.2); Basophils % (A) 1 %; CH 26.1; CHCM 33.1; Eosinophils # (A) 0.4 k/uL (0-0.7); Eosinophils % (A) 5 %; HCT 45.6 % (34.0-46.0); HDW 2.45; HGB 14.9 gm/dL (11.4-16.0); Luc # (Auto) 0.14; Luc % (Auto) 2; Lymphocytes # (A) 3.8 k/uL (1.0-4.8); Lymphocytes % (A) 49 %; MCH 25.9 pg (25.0-35.0); MCHC 32.8 g/dL (31.0-37.0); MCV 78.9 fL (80.0-100.0); Mean Platelet Volume 9.6; Monocytes # (A) 0.3 k/uL (0-1.0); Monocytes % (A) 4 %; Neutrophils % (A) 39 %; RBC 5.77 m/uL (3.80-5.40); WBC 7.7 k/uL (3.8-10.6)
[2016-06-30 00:53] LABS: ALT 27 U/L (9-52); AST 15 U/L (14-36); Acetaminophen <10.0 ug/mL; Alkaline Phosphatase 70 U/L (38-126); Anion Gap 17 mmol/L; Blood Urea Nitrogen 8 mg/dL (7-17); Calcium 9.3 mg/dL (8.4-10.2); Carbon Dioxide 23 mmol/L (22-30); Chloride 100 mmol/L (98-107); Glucose 86 mg/dL (74-99); Non-African American GFR(MDRD) >60 (>60 ml/min/1.73 sqM); Potassium 3.5 mmol/L (3.5-5.1); Salicylate <1.0 mg/dL; Sodium 140 mmol/L (137-145); Total Bilirubin 0.7 mg/dL (0.2-1.3); Total Protein 6.9 g/dL (6.3-8.2)
[2016-06-30 01:02] LABS: Alcohol 119 mg/dL
[2016-06-30 01:11] LABS: HCG,Qualitative Serum Not Detected
[2016-06-30 04:14] VITALS: BP 133/88; PULSE 72
== END 2016-06-30 04:14 | disposition home or self-care (01) ==
LOC: EC 20:55
DX: F10.129 Alcohol abuse with intoxication, unspecified (principal); H55.00 Unspecified nystagmus; M79.7 Fibromyalgia; F41.9 Anxiety disorder, unspecified; F32.9 Major depressive disorder, single episode, unspecified; F17.200 Nicotine dependence, unspecified, uncomplicated; Z79.899 Other long term (current) drug therapy
CPT/HCPCS: 36415; 80053; 80320; 83520; 84703; 85025; 99284

== ENCOUNTER → 2018-05-28 | Outpatient (CLI) | payer BC ==
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
== END | disposition home or self-care (01) ==
LOC: RADCTMAIN 15:39
PROVIDERS: ATTEND Orthopaedic Surgery
DX: S92.001A Unspecified fracture of right calcaneus, initial encounter for closed fracture (principal)

== ENCOUNTER 2020-11-06 10:08 | Observation (INO) | payer BC ==
[2020-11-06] MEDS ORDERED: SODIUM CHLORIDE 0.9% 1,000 ML IV STA (11:06)
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
[2020-11-06 11:50] LABS: Basophils % (A) 0 %; Eosinophils # (A) 0.3 k/uL (0-0.7); Eosinophils % (A) 4 %; HCT 25.9 % (34.0-46.0); Hypochromasia Marked; Lymphocytes # (A) 1.6 k/uL (1.0-4.8); Lymphocytes % (A) 20 %; MCHC 31.1 g/dL (31.0-37.0); MCV 67.6 fL (80.0-100.0); Mean Platelet Volume 7.4; Microcytosis Marked; Monocytes # (A) 0.4 k/uL (0-1.0); Monocytes % (A) 5 %; Neutrophils # (A) 5.5 k/uL (1.3-7.7); Neutrophils % (A) 70 %; Platelet Count 315 k/uL (150-450); Poikilocytosis Slight; RBC 3.82 m/uL (3.80-5.40); WBC 7.9 k/uL (3.8-10.6)
[2020-11-06 12:06] LABS: ALT 7 U/L (4-34); AST 16 U/L (14-36); African American GFR (CKD) >90 (>60 ml/min/1.73 sqM); Albumin 3.8 g/dL (3.5-5.0); Alkaline Phosphatase 61 U/L (38-126); Amylase 43 U/L (30-110); Anion Gap 8 mmol/L; Blood Urea Nitrogen 13 mg/dL (7-17); Calcium 9.2 mg/dL (8.4-10.2); Carbon Dioxide 22 mmol/L (22-30); Chloride 106 mmol/L (98-107); Glucose 104 mg/dL (74-99); Lipase 74 U/L (23-300); Non-African American GFR(CKD) >90 (>60 ml/min/1.73 sqM); Potassium 4.1 mmol/L (3.5-5.1); Sodium 136 mmol/L (137-145); Total Bilirubin 0.7 mg/dL (0.2-1.3); Total Protein 6.6 g/dL (6.3-8.2)
[2020-11-06 12:21] LABS: Appearance,Urine Clear (Clear); Bacteria,Urine Rare /hpf; Bilirubin,Urine Negative (Negative); Blood,Urine Negative (Negative); Color,Urine Yellow; Glucose,Urine (UA) Negative (Negative); Ketones,Urine Trace (Negative); Leukocyte Esterase,Urine Negative (Negative); Mucus,Urine Many /hpf; Nitrite,Urine Negative (Negative); Protein,Urine 1+ (Negative); RBC,Urine 1 /hpf (0-5); Specific Gravity,Urine 1.034 (1.001-1.035); Squamous Epithelial Cell,Urine 9 /hpf (0-4); WBC,Urine 3 /hpf (0-5)
--- NOTE | 2020-11-06 12:33 | CT ---
EXAMINATION TYPE: CT abdomen pelvis w con DATE OF EXAM: 11/06/2020 HISTORY: Abd pain/mass. Shortness of breath and bloating. CT DLP: 1929.9mGycm Automated Exposure Control for Dose Reduction was Utilized. CONTRAST: CT scan of the abdomen and pelvis is performed with IV Contrast, patient injected with 100 mL of Isov ue 300. COMPARISON: CT abdomen and pelvis December 29, 2012 and MRI abdomen January 09, 2013 FINDINGS: LUNG BASES: No significant abnormality is appreciated. LIVER/GB: Liver remains diffusely low dense consistent with diffuse fatty infiltration. Cholecystecto my clips are redemonstrated. PANCREAS: No significant abnormality is seen. SPLEEN: No significant abnormality is seen. ADRENALS: Interval enlargement of right adrenal mass containing fat and soft tissue density measuring 8.8 x 7.0 x 7.6 cm coronal image 69 and axial image 25. There is much smaller 1.0 cm left adrenal ma ss containing fat and soft tissue density axial image 20 is also present. KIDNEYS: Symmetrically measuring uptake and excretion without hydronephrosis seen bilaterally. BOWEL: Surgical changes from appendectomy in base of cecum. No suspicious small or large bowel dilata tion. UTERUS/ADNEXA: There is interval uterine enlargement with large heterogeneous mass causing significan t local mass effect extending cranially past level of the umbilicus measuring nearly 23 cm long axis sagittal image 68. There is suspected compression of the endometrial stripe inferiorly sagittal image 63. Transverse measurement of roughly 18.6 cm. Inferiorly there is lobulated contour and prominence noted with focal mass effect including bladder distention LYMPH NODES: No greater than 1cm abdominal or pelvic lymph nodes are appreciated. OSSEOUS STRUCTURES: No significant abnormality is seen. OTHER: No significant additional abnormality is seen. IMPRESSION: 1. New Large pelvic mass with abdominal extension uterine in origin could reflect marked fibroid prol iferation from the 2013 studies. Other etiologies not entirely excluded. Due to significant local mas s effect, surgical excisional or hysterectomy is likely necessary. 2. Enlarging right adrenal mass containing fat and soft tissue density up to 8.8 cm is still favored benign myelolipoma. Due to size one might consider surgical excision.
[2020-11-06] MEDS ORDERED: ACETAMINOPHEN TAB 325 MG TAB PO PRN (12:57)
[2020-11-06] MEDS ORDERED: NALOXONE 0.4 MG/ML 1 ML VIAL IV PRN (12:57)
[2020-11-06] MEDS ORDERED: HYDROcodone/APAP 5-325MG 1 EACH TAB PO PRN (12:57)
[2020-11-06] MEDS ORDERED: ALBUTEROL HFA INHALER INHALATION PRN (16:24)
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
[2020-11-06 23:26] LABS: Folate, Serum 8.5 ng/mL
[2020-11-06 23:41] LABS: % Iron Saturation 3.12 (12.00-45.00)
[2020-11-07 08:03] LABS: Basophils % (A) 1 %; Eosinophils # (A) 0.2 k/uL (0-0.7); Eosinophils % (A) 3 %; HCT 26.8 % (34.0-46.0); HGB 8.4 gm/dL (11.4-16.0); Hypochromasia Marked; Lymphocytes # (A) 1.3 k/uL (1.0-4.8); Lymphocytes % (A) 20 %; MCH 21.4 pg (25.0-35.0); MCHC 31.5 g/dL (31.0-37.0); Mean Platelet Volume 7.4; Microcytosis Marked; Monocytes # (A) 0.3 k/uL (0-1.0); Monocytes % (A) 5 %; Neutrophils # (A) 4.5 k/uL (1.3-7.7); Neutrophils % (A) 70 %; Platelet Count 323 k/uL (150-450); Poikilocytosis Slight; RBC 3.95 m/uL (3.80-5.40); RDW 14.9 % (11.5-15.5); WBC 6.4 k/uL (3.8-10.6)
[2020-11-07 08:12] LABS: ALT 7 U/L (4-34); AST 13 U/L (14-36); African American GFR (CKD) >90 (>60 ml/min/1.73 sqM); Albumin 3.6 g/dL (3.5-5.0); Alkaline Phosphatase 62 U/L (38-126); Blood Urea Nitrogen 8 mg/dL (7-17); Calcium 8.9 mg/dL (8.4-10.2); Carbon Dioxide 23 mmol/L (22-30); Chloride 106 mmol/L (98-107); Glucose 88 mg/dL (74-99); Non-African American GFR(CKD) >90 (>60 ml/min/1.73 sqM); Potassium 4.2 mmol/L (3.5-5.1); Total Bilirubin 0.8 mg/dL (0.2-1.3); Total Protein 6.2 g/dL (6.3-8.2)
[2020-11-07 08:19] VITALS: BP 155/95; PULSE 89; RESP 18; TEMP 98.2
[2020-11-07 08:26] LABS: Anion Gap 7 mmol/L; Sodium 136 mmol/L (137-145)
[2020-11-07] MEDS ORDERED: SODIUM FERRIC GLUCONAT-SUCROSE 125 MG in SODIUM CHLORIDE 0.9% 100 ML IVPB ONE (11:35)
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
--- NOTE | 2020-11-07 13:08 | P.DS ---
Providers Date of admission: 11/06/20 12:45 Expected date of discharge: 11/07/20 Attending physician: Eduardo Rosen Consults: 11/06/20 12:58 Consult Physician Urgent Consulting Provider: Giovanni Looney Reason/Comments: Uterine mass Do you want consulting provider notified?: Yes Primary care physician: Eduardo [facility] Hospital Course: Diagnosis on discharge: Large pelvic mass with abdominal extension or regenerating in the uterus, patient was evaluated by gynecology, and are planning on referring patient to [facility] Right adrenal mass Anemia, hemoglobin on presentation 8, will check iron profile and vitamin B12 and folate level and replace as needed, iron level was low patient received 1 dose of IV iron during this hospitalization Elevated blood pressure 161/93 on presentation, will monitor and add blood pressure medications if needed Hospital course: Marce Hart, is a year old male who presented to [facility] emergency room with a chief complaint of abdominal pain and bloating She was evaluated in the emergency room vital examination on presentation revealed a temperature of 98.1 pulse 90 respiration 18 and blood pressure 161/93 pulse ox 99% on room air Laboratory data reveals a white blood count of 7.9 hemoglobin 8.0 platelet count 315 Testing in the emergency room revealed computed tomography scan done in the emergency room revealed a large pelvic mass originating in the uterus and extending into the abdomen, possibly related to a large fibroid tumor, there was also a 8.8 cm adrenal mass Patient was admitted to medical floor for further evaluation and treatment. On 11/07/2020, patient was seen and examined on the medical floor, she is alert and oriented 3 in no apparent distress, she is still complaining of some discomfort in the pelvic area otherwise she denies any complaints, she was evaluated by gynecology, and was told Dr. george is not amenable in our institution, and she will be referred to [facility] for further evaluation and treatment, patient received 1 dose of IV iron during this hospital stay, she will be followed by Dr. Nagy inside [employer] in 1-2 weeks, she will be also followed in our office within 1 week Patient Condition at Discharge: Fair Plan - Discharge Summary Discharge Rx Participant: Yes New Discharge Prescriptions: New Ferrous Sulfate [Feosol] 325 mg PO DAILY 30 Days #30 tab Continue Albuterol Inhaler [Ventolin Hfa Inhaler] 2 puff INHALATION RT-Q4H PRN PRN Reason: Shortness Of Breath Discharge Medication List Albuterol Inhaler [Ventolin Hfa Inhaler] 2 puff INHALATION RT-Q4H PRN 11/06/20 [History] Ferrous Sulfate [Feosol] 325 mg PO DAILY 30 Days #30 tab 11/07/20 [Rx] Follow up Appointment(s)/Referral(s): Eduardo Rosen MD [Primary Care Provider] - 1-2 days
== END 2020-11-07 14:19 | disposition home or self-care (01) ==
LOC: EC 10:08 → 6PED 12:45
PROVIDERS: ADMIT Internal Medicine; ATTEND Internal Medicine
DX: R10.9 Unspecified abdominal pain (principal); R19.00 Intra-abdominal and pelvic swelling, mass and lump, unspecified site; E27.9 Disorder of adrenal gland, unspecified; D25.9 Leiomyoma of uterus, unspecified; Z20.822 Contact with and (suspected) exposure to COVID-19; D64.9 Anemia, unspecified; F32.9 Major depressive disorder, single episode, unspecified; F41.9 Anxiety disorder, unspecified; G40.909 Epilepsy, unspecified, not intractable, without status epilepticus; I10 Essential (primary) hypertension; J45.909 Unspecified asthma, uncomplicated; M79.7 Fibromyalgia; Z87.891 Personal history of nicotine dependence; Z90.49 Acquired absence of other specified parts of digestive tract; Z96.619 Presence of unspecified artificial shoulder joint
CPT/HCPCS: 96365; 96361; 99285; 36415; 94640; 80053 ×2; 82607; 82150; 82746; 83540; 83550; 83605; 83690; 85025 ×2; 81001; 81025; 87635; 74177; G0378 ×2; J2916; Q9967

== ENCOUNTER → 2020-12-14 | Outpatient (CLI) | payer BC ==
[2020-12-15 22:59] LABS: African American GFR (CKD) 129.9 (60.0-200.0); Anion Gap 18.8 mmol/L (4.00-12.00); BUN/Creat Ratio 28.16 Ratio (12.00-20.00); Blood Urea Nitrogen 17.8 mg/dL (9.0-27.0); Calcium 9.8 mg/dL (8.7-10.3); Carbon Dioxide 18.3 mmol/L (21.6-31.8); Non-African American GFR(CKD) 112.1 (60.0-200.0); Potassium 4.4 mmol/L (3.5-5.5)
== END | disposition home or self-care (01) ==
LOC: LABWHC1 15:57
PROVIDERS: ATTEND Urology
DX: E27.9 Disorder of adrenal gland, unspecified (principal)
CPT/HCPCS: 36415; 80048; 82088; 83835; 84244